=== PATIENT | female | born 1960 | race Caucasian/White ===

== ENCOUNTER 2021-01-25 12:10 | Emergency (ER) | payer OTHER ==
[~2021-01-25] VITALS: Ht 175.3 cm; Wt 113.6 kg
[2021-01-25] MEDS ORDERED: GABA-1181 PO (12:17)
[2021-01-25] MEDS ORDERED: AMOX1TAB15 PO (12:17)
[2021-01-25] MEDS ORDERED: HTN MED PO (12:17)
[2021-01-25] MEDS ORDERED: PARO10TA89 PO (12:17)
[2021-01-25] MEDS ORDERED: SODIUM CHLORIDE 0.9% 1,000 ML IV ONE (14:15)
[2021-01-25] MEDS ORDERED: KETOROLAC TROMETHAMINE 30 MG/ML VIAL IVP ONE (14:15)
[2021-01-25] MEDS ORDERED: DiphenhydrAMINE HCL 50 MG/ML VIAL IVP ONE (14:15)
[2021-01-25] MEDS ORDERED: METOCLOPRAMIDE HCL 5 MG/ML 2 ML VIAL IVP ONE (14:15)
[2021-01-25 14:31] LABS: BASOPHILS % (AUTO) 0.8 % (0.0-2.0); EOSINOPHILS % (AUTO) 3.4 % (1.0-6.0); HEMATOCRIT 42.2 % (36-46); HEMOGLOBIN 14.4 g/dL (12.0-16.0); LYMPHOCYTES # (AUTO) 3.7 K/uL (1.0-4.8); LYMPHOCYTES % (AUTO) 34.1 % (22.0-44.0); MEAN CORPUSCULAR HEMOGLOBIN 31.3 pg (26.0-34.0); MEAN CORPUSCULAR HGB CONC 34.2 G/dL (31.0-37.0); MEAN CORPUSCULAR VOLUME 92 fL (80-100); MONOCYTES # (AUTO) 0.6 K/uL (0.1-1.0); MONOCYTES % (AUTO) 5.9 % (2.0-9.0); NEUTROPHILS % (AUTO) 55.8 % (40.0-70.0); PLATELET COUNT (AUTO) 311 K/uL (150-450); RED BLOOD CELL COUNT(AUTO) 4.61 MIL/uL (4.00-5.20); RED CELL DISTRIBUTION WIDTH 12.7 % (11.5-14.5)
[2021-01-25 14:40] LABS: ANION GAP 6 mmol/L (8-16); CALCIUM, TOTAL 8.6 mg/dL (8.8-10.5); CARBON DIOXIDE 28 mmol/L (22-29); CHLORIDE 100 mmol/L (98-107); CREATININE 0.87 mg/dL (0.60-1.30); GLOMERULAR FILTR. RATE CALC > 60 mL/min (>60); GLUCOSE,RANDOM 106 mg/dL (70-110); POTASSIUM 3.8 mmol/L (3.5-5.1); SODIUM SERUM 134 mmol/L (136-145); UREA NITROGEN, BLOOD 10 mg/dL (7-18)
[2021-01-25 15:30] VITALS: BP 140/71
== END 2021-01-25 16:28 | disposition home or self-care (01) ==
LOC: EMS 12:14
DX: G43.909 Migraine, unspecified, not intractable, without status migrainosus (principal); R29.810 Facial weakness; R20.0 Anesthesia of skin; F32.9 Major depressive disorder, single episode, unspecified; I10 Essential (primary) hypertension
CPT/HCPCS: 36415; 70450; 80048; 82962; 85025; 96361; 96374; 96375; 99284; J1200; J1885; J2765; J7030